=== PATIENT | female | born 1945 | race Caucasian/White ===

== ENCOUNTER 2017-10-05 17:27 | Emergency (ER) | payer BC ==
[2017-10-05] MEDS ORDERED: cefTRIAXone SODIUM 1 GM VIAL IM ONE (20:28)
[2017-10-05 20:32] VITALS: BP 128/63; TEMP 97.2; O2SAT 98
--- NOTE | 2017-10-05 20:33 | ED.PDOC ---
History of Present Illness - General Chief Complaint: Laceration Time Seen by Provider: 10/05/17 20:27 Source: patient Exam Limitations: no limitations - History of Present Illness Initial Comments: patient comes in with splinting of the laceration that occurred yesterday. Patient was on a fishing belt holding onto a line and a got jerks to her hand tearing several of her fingers. Patient stated it was superficial and easy to control so they cleaned it and she did not have to do much else with it. Today however she went back onto the boat and noticed that they were very swollen stiff and in particular her third digit opened and started to bleed. She had noticed some swelling and slight erythema with discharge. She's had no fever, chills, nausea or vomiting. She has diabetes type 2 but is very well controlled and she also has hypertension. Timing/Duration: yesterday Severity: mild Location: hands Improving Factors: nothing Worsening Factors: movement Allergies/Adverse Reactions: Allergies Latex Allergy (Verified 10/05/17 20:27) Levofloxacin [From Levaquin] Allergy (Verified 10/05/17 20:27) Tramadol Allergy (Verified 10/05/17 20:27) Codeine Adverse Reaction (Verified 10/05/17 20:26) Home Medications: Ambulatory Orders Sulfa/Trimeth Tab 800/160 (ER) [Bactrim DS Tab (ER DISPENSE)] 1 ea PO BID 1 Days #2 tab 10/05/17 Sulfamethoxazole-Trimethoprim [Bactrim Ds 800-160 mg] 1 tablet PO BID 7 Days # 14 tablet 10/05/17 Review of Systems - Review of Systems Constitutional: States: no symptoms reported. Denies: chills, fever EENTM: States: no symptoms reported Respiratory: States: no symptoms reported Cardiology: States: no symptoms reported Gastrointestinal/Abdominal: States: no symptoms reported Genitourinary: States: no symptoms reported Physical Exam - Physical Exam General Appearance: No apparent distress Eyes, Ears, Nose, Throat Exam: PERRL/EOMI Cardiovascular/Chest: normal peripheral pulses, regular rate, rhythm, no edema, no gallop, no JVD, no murmur Respiratory: chest non-tender, lungs clear, normal breath sounds, no respiratory distress Gastrointestinal/Abdominal: normal bowel sounds, non tender, soft Extremity: other - patient has lacerations to the PIP joints of the second third fourth and fifth digits on her right hand. The third digit has 1 cm opening of the skin that appears to be healing with swelling and mild calor at approximately 1 mm around the area of the laceration. There is no purulent drainage no fluctuance and no induration. Other lesions seem to be healing and are superficial with no erythema, purulence, Progress - Progress Progress: 10/05/17 20:33 patient had lacerations yesterday from a line while she was on a fishing that. Those were cleaned at home and she said at that time she felt like they can be controlled easily. Today however one of the lacerations opened and began to bleed and have some drainage. It does appear to have an early infection with swelling but no fluctuance and patient has no systemic symptoms. Rocephin 1 g given an Bactrim 2 pills dispensed from the emergency room and then to be continued as twice a day for 7 additional days. Patient should follow up in 3- 4 days with her PCP and should return to the emergency room for any fever, worsening symptoms, or increasing pain. Departure - Departure Clinical Impression: Wound cellulitis Finger laceration Qualifiers: Encounter type: sequela Finger: middle finger Damage to nail status: without damage Foreign body presence: without foreign body Laterality: right Qualified Code(s): S61.212S - Laceration without foreign body of right middle finger without damage to nail, sequela Disposition: Discharge to Home or Self Care Condition: Good Departure Forms: ED Discharge - Pt. Copy, Patient Portal Self Enrollment Instructions: DI for Laceration Repair Diet: diabetic diet Prescriptions: Sulfa/Trimeth Tab 800/160 (ER) [Bactrim DS Tab (ER DISPENSE)] 1 ea PO BID 1 Days #2 tab Sulfamethoxazole-Trimethoprim [Bactrim Ds 800-160 mg] 1 tablet PO BID 7 Days # 14 tablet Home Medications: Ambulatory Orders Sulfa/Trimeth Tab 800/160 (ER) [Bactrim DS Tab (ER DISPENSE)] 1 ea PO BID 1 Days #2 tab 10/05/17 Sulfamethoxazole-Trimethoprim [Bactrim Ds 800-160 mg] 1 tablet PO BID 7 Days # 14 tablet 10/05/17 Additional Instructions: clean area twice a day with warm soapy water and pat dry. May place Neosporin over the area and keep covered. Return to emergency room for temperature greater than 100.5, increasing redness or pain, or bleeding. Follow-up with PCP in 3-4 days to recheck wound. Bactrim DS one twice a day for 7 additional days should be taken. Rocephin was given here and patient is up-to-date on her tetanus shot.
[2017-10-05] MEDS ORDERED: SULFA/TRIMETH TAB 800/160 (ER) 1 EA TAB PO ONE (20:50)
[2017-10-05] MEDS ORDERED: LIDOCAINE 1% 10 ML VIAL INJ ONE (20:52)
== END 2017-10-05 21:00 | disposition home or self-care (01) ==
LOC: ER 17:27
DX: S61.212A Laceration without foreign body of right middle finger without damage to nail, initial encounter (principal); L03.011 Cellulitis of right finger; E11.9 Type 2 diabetes mellitus without complications; W45.8XXA Other foreign body or object entering through skin, initial encounter; Y92.814 Boat as the place of occurrence of the external cause